=== PATIENT | male | born 1960 | race Caucasian/White ===

== ENCOUNTER 2021-09-23 08:31 | Inpatient (IN) | payer OTHER ==
[2021-09-23] VITALS (12 sets, daily range): BP systolic 116–161; BP diastolic 71–101
[~2021-09-23] VITALS: Ht 172.7 cm; Wt 102.1 kg
--- NOTE | 2021-09-23 08:31 | NUR ---
Patient wheelchair assisted from main lobby to ER bed 9.
--- NOTE | 2021-09-23 08:34 | NUR ---
RT at bedside
--- NOTE | 2021-09-23 08:34 | NUR ---
Dr. Coelho is evaluating pt at bedside
--- NOTE | 2021-09-23 08:35 | NUR ---
61 y/o M W/C assisted to bed 09 c/o fatigue x 2 weeks. Patient A&Ox4, ambulatory, states SOB and fatigue for the past 2 weeks worsening past 3 days. States fatigue worsens with exertion at work. Denies chest pain, abdominal pain, headache, fever, chills, N/V/D, urinary symptoms, sick household membres. Pt placed onto cadriac monitor showing SpO2 77% on room air; tachypneic @ 26. Bed locked in lowest position, side rails x 1. PMH/Sx/Meds: Denies NKDA
--- NOTE | 2021-09-23 08:35 | NUR ---
RT placed pt on 15L via NRB. SpO2 96% on NRB; states relief.
--- NOTE | 2021-09-23 08:46 | NUR ---
RAD at bedside
--- NOTE | 2021-09-23 08:49 | NUR ---
Moises valentine, influenza swabs handed to CPT at ER bedside
--- NOTE | 2021-09-23 08:49 | NUR ---
Lab at bedside. Blood sample handed to CPT
--- NOTE | 2021-09-23 08:49 | NUR ---
EMT at bedside for EKG
[2021-09-23 09:04] LABS: BASOPHILS # (AUTO) 0.1 K/uL (0.00-0.22); BASOPHILS % (AUTO) 0.8 % (0.0-2.0); EOSINOPHILS # (AUTO) 0.1 K/uL (0-0.4); EOSINOPHILS % (AUTO) 1.4 % (0.0-4.0); HEMATOCRIT 45.7 % (36-52); HEMOGLOBIN 15.2 g/dL (12.0-18.0); LYMPHOCYTES # (AUTO) 2.1 K/uL (2.0-11.5); LYMPHOCYTES % (AUTO) 22.2 % (20.5-51.1); MEAN CORPUSCULAR HEMOGLOBIN 33 pg (27-31); MEAN CORPUSCULAR HGB CONC 33 g/dL (33-37); MEAN CORPUSCULAR VOLUME 98.4 fL (80-94); MONOCYTES # (AUTO) 0.9 K/uL (0.8-1.0); MONOCYTES % (AUTO) 8.9 % (1.7-9.3); NEUTROPHILS # (AUTO) 6.4 K/uL (1.8-7.7); NEUTROPHILS % (AUTO) 66.7 % (42.2-75.2); PLATELET COUNT (AUTO) 154 K/uL (140-450); RED BLOOD CELL COUNT(AUTO) 4.64 MIL/uL (4.20-6.10); RED CELL DISTRIBUTION WIDTH 15.2 % (11.6-13.7); WHITE BLOOD COUNT (AUTO) 9.7 K/uL (4.8-10.8)
--- NOTE | 2021-09-23 09:05 | NUR ---
Note undone in EDM - 09/23/21 at 0908 by [facility] 61 y/o M W/C assisted to bed 09 c/o fatigue x 2 weeks. Patient A&Ox4, ambulatory, states SOB and fatigue for the past 2 weeks worsening past 3 days. States fatigue worsens with exertion at work. Denies chest pain, abdominal pain, headache, fever, chills, N/V/D, urinary symptoms, sick household membres. Pt placed onto cadriac monitor showing SpO2 77% on room air; tachypneic @ 26. Bed locked in lowest position, side rails x 1. PMH/Sx/Meds: Denies NKDA
[2021-09-23 09:35] LABS: ALBUMIN 3.8 g/dL (3.4-5.0); ANION GAP 17.8 (8-16); CARBON DIOXIDE 23.6 mmol/L (21-32); CREATININE 1.5 mg/dL (0.6-1.3); POTASSIUM 4.4 mmol/L (3.5-5.1); TOTAL BILIRUBIN 1.3 mg/dL (0.0-1.0)
--- NOTE | 2021-09-23 09:46 | NUR ---
Pt to CT by rhonda; placed on 15L via NRB on portable O2 tank.
[2021-09-23 09:48] LABS: APPEARANCE,URINE CLEAR (CLEAR); BILIRUBIN,URINE NEGATIVE (NEGATIVE); BLOOD, URINE 3+ (NEGATIVE); COLOR,URINE YELLOW (YELLOW); LEUKOCYTE ESTERASE ,URINE TRACE (NEGATIVE); NITRITE, URINE NEGATIVE (NEGATIVE); UGLUCOSE NEGATIVE (NEGATIVE)
[2021-09-23 09:50] LABS: PROTHROMBIN TIME 9.9 secs (10.8-13.4)
[2021-09-23] MEDS ORDERED: NACL 0.9% 250 ML IV ONE (09:50)
[2021-09-23] MEDS ORDERED: ASPIRIN 325 MG TAB PO ONE (09:50)
[2021-09-23] MEDS ORDERED: DOXYCYCLINE 100 MG CAP PO SCH (09:50)
[2021-09-23] MEDS ORDERED: HEPARIN PER PHARMACY MC STA (09:51)
[2021-09-23] MEDS ORDERED: HEPARIN PER PHARMACY MC ONE (09:55)
[2021-09-23] MEDS ORDERED: hePARIN / DEXT 5% PREMIX 250 ML IV ONE (09:55)
[2021-09-23] MEDS ORDERED: cefTRIAXone 1,000 MG VIAL ONE (09:58)
--- NOTE | 2021-09-23 10:02 | NUR ---
Pt returned from CT and back onto furniture reproducer.
[2021-09-23 10:07] LABS: WBC,URINE 0-5 /HPF (0-5); YEAST,URINE Few /HPF (None Seen)
[2021-09-23] MEDS ORDERED: HEPARIN PER PHARMACY MC PRN ×2 (10:15→10:35)
--- NOTE | 2021-09-23 10:21 | NUR ---
Dr. Coelho is evaluating pt at bedside. Assembler Musical Equipment ID: [id number]
[2021-09-23] MEDS ORDERED: hePARIN / DEXT 5% PREMIX 250 ML IV SCH (10:35)
--- NOTE | 2021-09-23 10:39 | NUR ---
Per pharmacy, Heparin BOLUS 5700 Units and intiate drip at 1500 Units (15mL). Reorder PT/INR at 6 hrs
--- NOTE | 2021-09-23 10:45 | NUR ---
Patient will be admitted to care of Dr. Yee. Admited to Telemetry. Will go to room 106A. Belongings list completed. Report to THAD Mustafa.
--- NOTE | 2021-09-23 10:53 | NUR ---
RECEIVED PT FROM ED NURSE, RECEIVED REPORT FROM NURSE. PT IS A&OX4,AMBULATED FROM [facility], TO HIS BED. PT ON NON-REBREATHER MASK, WITH 15L O2, O2SAT AT 94%. IV SITE ON BILATERAL AC, WITH 20G. PER ED NURSE, PT SHOULD RECEIVE 1500 UNITS OF HEPARIN DRIP, AND 5700UNITS OF HEPARIN BOLUS. CALL [facility] WITHIN REACH, ALL SAFETY MEAUSURES DONE. WILL CONTINUE TO MONITOR.
--- NOTE | 2021-09-23 10:55 | NUR ---
Bedside report given to THAD Mustafa. Endorsed Heparin orders per pharmacy to THAD Mustafa.
--- NOTE | 2021-09-23 11:08 | NUR ---
RICHIE FROM [facility] CALLED, PT TROPONIN AT 915, LACTIC ACID AT 4.5. REPORTED TO . REPLIED AND ORDERED TO GIVE 500ML NS BOLUS. GAVE 500ML NS BOLUS.
[2021-09-23] MEDS: hePARIN / DEXT 5% PREMIX 250 ML IV SCH (11:16)
--- NOTE | 2021-09-23 11:25 | NUR ---
STARTED HEPARIN DRIP AT 15ML/HR, AND GAVE BOLUS OF HEPARIN TO PT. PER PROTOCOL, PTT WILL BE TAKEN AFTER 6HRS.
[2021-09-23] MEDS ORDERED: NACL 0.9% 500 ML IV SCH (12:15)
--- NOTE | 2021-09-23 15:05 | NUR ---
PT O2SAT DROPPED TO 73% WHEN HE STOOD UP AND USED THE URINAL ON BEDSIDE. PLACED V/S MONITOR AND MONITORED PT V/S.
--- NOTE | 2021-09-23 15:09 | NUR ---
DR EMNDEZ CHANGED PT NON-REBREATHER MASK TO NC, WITH O2 FLOW RATE OF OF 6L. PT O2SAT AT 92%. AFTER SOME TIME, PT O2SAT DROPPED. RT PUT BACK THE NON-REBREATHER MASK AT 100% OXYGEN. PT O2SAT AT 91%.
--- NOTE | 2021-09-23 16:02 | NUR ---
PT WAS TRANSFERRED TO ICU. PT O2SAT IS GOING DOWN. TRANSPORTED PT TO ICU [facility], AND GAVE REPORT TO ICU NURSE. DISCUSSED PLAN OF CARE.
--- NOTE | 2021-09-23 16:15 | NUR ---
RECEIVED PT. FROM TELE RM 106A IN BED .ADM, TO ICUN BED 3. PT IS AWAKE ALERT ORIENTED X4 PT IS SLIGHTLY AGITATED TALK LOUND SKIN DRY AND INTACT IV#20 ON RT AND LEFT AC. HEPARIN DRIP ON RT AN INFUSING 1877 UNIT/HR . HE DENIED PAIN.
[2021-09-23] MEDS ORDERED: ACETAMINOPHEN 325 MG TAB PO PRN (16:25)
[2021-09-23] MEDS ORDERED: ONDANSETRON 4 MG/2 ML VIAL IVP PRN (16:25)
[2021-09-23] MEDS ORDERED: HYDROcodone/APAP 5/325 MG 1 TAB TAB PO PRN (16:25)
--- NOTE | 2021-09-23 17:15 | NUR ---
VISIT AT BED SIDE .
--- NOTE | 2021-09-23 17:49 | NUR ---
PT RESTING QUIET ON HIFLOW 40 L/1005 temp 37degree c SAT IS AT945.
--- NOTE | 2021-09-23 19:15 | NUR ---
RECEIVED PATIENT ON BED, AWAKE, ALERT AND ORIENTED; MOVES LIMBS FREELY. VENTILATING ON 100% 02 PER HI FLOW 02. COMMENCING ON IV HEPARIN DRIP AT 1500 UNITS/HR VIA G 20 IV CANNULA ON RIGHT AC; PATENT AND INTACT. ALL PERIPHERAL PULSES+ NO PEDAL EDEMA SEEN. ABDOMEN IS SOFT AND OBESE; ACTIVE BOWEL SOUNDS.
--- NOTE | 2021-09-23 21:30 | NUR ---
SETTLED TO SLEEP.;MONITORED CLOSELY.
[2021-09-23 23:17] LABS: PROTHROMBIN TIME 10.3 secs (10.8-13.4)
--- NOTE | 2021-09-23 23:34 | NUR ---
PTT RESULT WITHIN THERAPEUTIC RANGE; HEPARIN DRIP MAINTAINED [id number] UNITS/HR
[2021-09-24] VITALS (22 sets, daily range): BP systolic 111–158; BP diastolic 61–98
--- NOTE | 2021-09-24 04:30 | NUR ---
MORNING BED BATH DONE WITH MINIMUM ASSISTANCE.
[2021-09-24] MEDS: hePARIN / DEXT 5% PREMIX 250 ML IV SCH ×2 (05:15→20:40)
[2021-09-24 05:52] LABS: BASOPHILS # (AUTO) 0.1 K/uL (0.00-0.22); BASOPHILS % (AUTO) 1.2 % (0.0-2.0); EOSINOPHILS # (AUTO) 0.4 K/uL (0-0.4); EOSINOPHILS % (AUTO) 5.1 % (0.0-4.0); HEMATOCRIT 42.2 % (36-52); HEMOGLOBIN 14.2 g/dL (12.0-18.0); LYMPHOCYTES # (AUTO) 2.1 K/uL (2.0-11.5); LYMPHOCYTES % (AUTO) 27.5 % (20.5-51.1); MEAN CORPUSCULAR HEMOGLOBIN 33 pg (27-31); MEAN CORPUSCULAR HGB CONC 34 g/dL (33-37); MEAN CORPUSCULAR VOLUME 97.7 fL (80-94); MONOCYTES # (AUTO) 0.7 K/uL (0.8-1.0); MONOCYTES % (AUTO) 9.9 % (1.7-9.3); NEUTROPHILS # (AUTO) 4.2 K/uL (1.8-7.7); NEUTROPHILS % (AUTO) 56.3 % (42.2-75.2); PLATELET COUNT (AUTO) 133 K/uL (140-450); RED BLOOD CELL COUNT(AUTO) 4.31 MIL/uL (4.20-6.10); RED CELL DISTRIBUTION WIDTH 15.3 % (11.6-13.7); WHITE BLOOD COUNT (AUTO) 7.5 K/uL (4.8-10.8)
[2021-09-24 06:00] LABS: PROTHROMBIN TIME 10.3 secs (10.8-13.4)
[2021-09-24 06:20] LABS: ALBUMIN 3.1 g/dL (3.4-5.0); CARBON DIOXIDE 21.8 mmol/L (21-32); CREATININE 1.2 mg/dL (0.6-1.3); MAGNESIUM 1.8 mg/dL (1.8-2.4); PHOSPHORUS 3.5 mg/dL (2.5-4.9); POTASSIUM 3.8 mmol/L (3.5-5.1); TOTAL BILIRUBIN 0.9 mg/dL (0.0-1.0)
--- NOTE | 2021-09-24 07:20 | NUR ---
RECEIVED REPORT FROM DANIEL ONEIL. SLEEPING ON HI FLOW 40L/80%/37 DEGREE. 02 SAT 96% SKIN DRY AND WARM TO TOUCH.IV HAS GATE #20 ON RT AND LT AC , HEPARIN DRIP ON RT AC AT 1500 UNIT/HR..
--- NOTE | 2021-09-24 11:50 | NUR ---
SEEN BY DR. VANESSA WILKES
--- NOTE | 2021-09-24 12:08 | NUR ---
DC PLANNIN YRS OLD MALE PATIENT WAS ADMITTED FROM HOME WITH A DX OF PULMONARY EMBOLISM. PATIENT HAS A HX OF COPD. CXR SHOWED NO ACUTE CARDIOPULMONARY DISEASE. CT CHEST BILATERAL PULMONARY EMBOLISM WITH RELATIVELY HIGH BURDEN, RAPID COVID TEST NEGATIVE. ON HIGH FLOW O2 FIO2 100%. ADMINISTERED HEPARIN DRIP. CONSULTED WITH PULMO AND CARDIO. DC PLAN TO GO HOME WHEN STABLE CM TO FOLLOW Addendum: 09/26/21 at 0904 by Goldie Slaughter RN DC PLANNING: PATIENT HAS AN ORDER TO TRANSFER TO HIGHER LEVEL OF CARE FOR CARDIAC CATHETERIZATION. FAXED TO [facility] [phone]. CM TO FOLLOW Addendum: 09/26/21 at 1148 by Goldie Slaughter RN DC PLANNING: CALLED [facility] [phone] SPOKE WITH MARION RICHARDS STATED [facility] IS NOT DELEGATED AND TO CONTACT [facility]. CALLED [facility] [phone] SPOKE WITH KIMBERLY PUT ME ON HOLD FOR MORE THAT 40 MIN AND TRANSFERRED ME TO PT'S PCP. CALLED SEVERAL TIMES SEEMS UNABLE TO LOOK FOR THE CONTRACTED FACILITY. PARVIN FROM [facility] COVERED PLACE ME ON HOLD. CM TO FOLLOW Addendum: 09/26/21 at 1346 by Goldie Slaughter RN DC PLANNING: PER PARVIN AT [facility] STATED SINCE THE MEMBER IS FFS DRG NO NEED FOR PRIOR AUTH. CALLED [facility] SPOKE WITH KAREN GANDARA STATED WILL REVIEW THE CASE AND CALL BACK. CM TO FOLLOW Addendum: 09/26/21 at 1514 by Goldie Slaughter RN DC PLANNING CALLED [facility] SPOKE WITH KAREN WALDROP AWAITING FOR THE DIRECTOR OF ORTHOPEDICS TO ACCEPT PATIENT. FAXED TO [facility] AND [facility]. CM TO FOLLOW. Addendum: 09/26/21 at 1600 by Goldie Slaughter RN DC PLANNING: RECEIVED A CALL FROM [facility] NICHOL BELL WITH KAREN WALDROP THEY ACCEPT PATIENT AND ACCEPTING DR WILL BE DR AARON Calhoun AND ATTENDING DR MOSER. AWAITING FOR ROOM NUMBER. CM TO FOLLOW Addendum: 09/26/21 at 1657 by Goldie Slaughter RN DC PLANNING: RECEIVED A CALL FROM [facility] SUPERVISOR REQUESTING THE COVID PCR RESULT, ITS PENDING NOTIFIED NURSE RENÉE AND ELGIN BARTH TO FAX THE PCR RESULT TO [phone] ARRANGED TRANSPORT WITH [facility] PLACE IT WILL CALL. [facility] # [phone]. CM TO FOLLOW
--- NOTE | 2021-09-24 13:00 | NUR ---
SEEN BY DR. CASTRO NO ORDER RECEIVED.
--- NOTE | 2021-09-24 14:48 | NUR ---
ECHOCARDIOGRAM DONE. P[T IS AWAKE AND ALERT.DENIED PAIN.
--- NOTE | 2021-09-24 15:00 | NUR ---
VISIT BY FAMILY [SON] AT BED SIDE.
--- NOTE | 2021-09-24 16:30 | NUR ---
VISIT BY AT BEDSIDE, PT AWAKE AND ALERT DENIED PAIN.
--- NOTE | 2021-09-24 18:34 | NUR ---
DINNER TOOK 75%.
--- NOTE | 2021-09-24 19:19 | NUR ---
REPORT GIVE TO DANIEL THAD .
--- NOTE | 2021-09-24 19:20 | NUR ---
RECEIVED PATIENT ON BED, AWAKE, ALERT AND ORIENTED; VENTILATING THRU 75% HIGH FLOW 02 BY NASAL CANNULA S02 95%. CARDIACCOPE SHOWS ON SINUS RHYTHM HR 73/MIN NO ARRHYTHMIAS SEEN. IV DRIP IN PROGRESS HEPARIN AT 1500 UNITS/HR VIA G 20 IV CANNULA ON RIGHT AC, PATENT AND INTACT. ABDOMEN IS SOFT, ACTIVE BOWEL SOUNDS.
[2021-09-25] VITALS (19 sets, daily range): BP systolic 113–155; BP diastolic 59–108
--- NOTE | 2021-09-25 | NUR ---
ASLEEP, V/S STABLE AND WITHIN NORMAL RANGE.
--- NOTE | 2021-09-25 04:00 | NUR ---
REFUSE MORNING BED BATH; PREFERS TO SLEEP.
[2021-09-25 04:24] LABS: BASOPHILS % (AUTO) 0.4 % (0.0-2.0); EOSINOPHILS # (AUTO) 0.4 K/uL (0-0.4); EOSINOPHILS % (AUTO) 5.6 % (0.0-4.0); HEMOGLOBIN 13.7 g/dL (12.0-18.0); LYMPHOCYTES # (AUTO) 2.5 K/uL (2.0-11.5); LYMPHOCYTES % (AUTO) 36.4 % (20.5-51.1); MEAN CORPUSCULAR HEMOGLOBIN 33 pg (27-31); MEAN CORPUSCULAR HGB CONC 34 g/dL (33-37); MEAN CORPUSCULAR VOLUME 97.9 fL (80-94); MONOCYTES # (AUTO) 0.6 K/uL (0.8-1.0); MONOCYTES % (AUTO) 8.6 % (1.7-9.3); NEUTROPHILS # (AUTO) 3.4 K/uL (1.8-7.7); PLATELET COUNT (AUTO) 118 K/uL (140-450); RED BLOOD CELL COUNT(AUTO) 4.18 MIL/uL (4.20-6.10); RED CELL DISTRIBUTION WIDTH 15.2 % (11.6-13.7); WHITE BLOOD COUNT (AUTO) 6.9 K/uL (4.8-10.8)
[2021-09-25 04:29] LABS: ANION GAP 11.8 (8-16); CARBON DIOXIDE 24.2 mmol/L (21-32); CREATININE 1.3 mg/dL (0.6-1.3)
--- NOTE | 2021-09-25 05:00 | NUR ---
PTT RESULT WITHIN THERAPEUTIC RANGE SO HEPARIN DRIP MAINTAINED TO 1500 UNITS/HR PER PROTOCOL.
--- NOTE | 2021-09-25 07:05 | NUR ---
HAD BM TO A LARGE AMOUNT OF SOFT BROWN STOOL TO BEDSIDE COMMODE.
--- NOTE | 2021-09-25 07:30 | NUR ---
RECEIVED REPORT FROM VISUAL AND STOCK ASSOCIATE. PT AWAKE IN BED, HOB ELEVATED, AOX4, VINCENTIAN SPEAKING. NO RESPIRATORY DISTRESS ON HIFLOW 30L FIO2 75%, WITH SOB UPON EXERTION. NO C/O PAIN. WITH IV ON RAC 20G AND LAC 20G RUNNING HEPARIN DRIP 1500u/HR. NEXT PTT 5-24 @ 0400. ECHO PENDING. CALL LIGHT WITHIN REACH. SAFETY PRECAUTIONS IN PLACE
--- NOTE | 2021-09-25 07:35 | NUR ---
RECEIVED ON A VAPOTHERM HIGH FLOW NASAL CANNULA PLUGGED INTO RED OUTLET TOLERATING WELL WITHOUT ADVERSE REACTIONS NOTED NO APPARENT RESPIRATORY DISTRESS NOTED LOC AWAKE AND ALERT GOOD CHEST RISE SATURATION 98% ON FIO2 OF 75% TITRATED FIO2 TO 65% MAN/RN NOTIFIED
--- NOTE | 2021-09-25 08:30 | NUR ---
PT RESTING IN BED, NO COMPLAINTS AT THIS TIME
--- NOTE | 2021-09-25 09:03 | NUR ---
PATIENT HAS BEEN SCREENED AND CATEGORIZED MODERATE NUTRITION RISK. PATIENT WILL BE SEEN WITHIN 3-5 DAYS OF ADMISSION. / TO [address]
--- NOTE | 2021-09-25 10:10 | NUR ---
ECHO PROCEDURE COMPLETED 09/24/2021; HELD FOR DR. CASTRO TO READ; DR. LAMONT CLARK NOTIFIED
[2021-09-25] MEDS: ALBUTEROL SULFATE/IPRATROPIU 3 ML SOL IH PRN ×2 (10:47→19:40)
--- NOTE | 2021-09-25 10:48 | NUR ---
LOC AWAKE AND ALERT PATIENT PRESENTING WITH INCREASED SOB AT 24 BPM BREATH SOUNDS DIFFUSED RALES RIGHT SIDE; DECREASED LEFT SIDE HHN PRN THERAPY GIVEN AT THOS TIME ENCOURAGED PATIENT FOR INTERMITTENT DEEP BREATHING AND COUGH DURING HHN THERAPY SATURATION 97% ON FIO2 OF 65% POST HHN THERAPY TITRATED FIO2 TO 55% MAN/GRAB OPERATOR NOTIFIED
--- NOTE | 2021-09-25 11:20 | NUR ---
PT ASLEEP IN BED, NO APPARENT DISTRESS
--- NOTE | 2021-09-25 13:20 | NUR ---
SEEN AND EXAMINED BY DR CASTRO, PLAN OF CARE DISCUSSED. FAMILY AT BEDSIDE
[2021-09-25] MEDS: hePARIN / DEXT 5% PREMIX 250 ML IV SCH (13:45)
--- NOTE | 2021-09-25 16:10 | NUR ---
RESTING COMFORTABLY NO EVIDENCE OF PULMONARY DISTRESS NOTED GOPOD CHEST RISE AND AERATION THROUGHOUT BILATERAL LUNG [employer] AIRWAY PATENT SATURATION 96% ON FIO2 OF 55% TITRATED FIO2 TO 45% MAN/MANAGER SUBWAY NOTIFIED
--- NOTE | 2021-09-25 17:15 | NUR ---
NO DISTRESS NOTED EQUAL CHEST RISE SATURATION 96% ON FIO2 OF 45% TITRATED FIO2 TO 40% HOSSEIN/CISTERN ROOM WORKING SUPERVISOR NOTIFIED
--- NOTE | 2021-09-25 19:30 | NUR ---
RECEIVED PT. WIDE AWAKE, SITTING IN BED, AOX4, ABLE TO EXPRESS NEEDS AND BRITISH SPEAKING ONLY. PT. ON HIGH FLOW 28l, FIO2 40%, LUNG SOUNDS CLEAR. IV TO LEFT AC 20G AND RIGHT AC 20G WITH HEPARIN DRIP 1500 UNIT/HR. ABDOMEN SOFT, NON TENDER WITH BOWEL SOUNDS. SR ON MONITOR. SKIN DRY AND INTACT. PROVIDE SAFE AND QUIET ENVIRONMENT. NO C/O PAIN AT THIS TIME.
[2021-09-26] VITALS (14 sets, daily range): BP systolic 113–154; BP diastolic 60–103
--- NOTE | 2021-09-26 01:54 | NUR ---
PT. SLEEPING SUPINE AT THIS TIME. PT. ABLE TO MOVE HIMSELF INDEPENDENTLY IN BED. CONT. ON HIGH FLOW AND INCREASED FROM 40% TO 45% PER R.T. CONT. ON HEPARIN DRIP 1500 UNIT/HR. NO S/S OF PAIN AT THIS TIME.
--- NOTE | 2021-09-26 04:00 | NUR ---
LAB AT THE BEDSIDE TO DRAW PARTIAL THROMBOPLASTIN.
--- NOTE | 2021-09-26 04:48 | NUR ---
PT. AWAKE, ALERT AND ORIENTED. I OFFERED IF HE WANTS TO DO PERSONAL HYGIENE, PERSONAL CARE WITH ASSISTANCE AND HE SAID NO.
[2021-09-26] MEDS: hePARIN / DEXT 5% PREMIX 250 ML IV SCH (05:32)
[2021-09-26] MEDS: ALBUTEROL SULFATE/IPRATROPIU 3 ML SOL IH PRN ×2 (07:28→14:41)
--- NOTE | 2021-09-26 07:28 | NUR ---
RECEIVED ON A VAPOTHERM HIGH FLOW NASAL CANNULA PLUGGED INOT RED OUTLET TOLERATING WELL WITHOUT COMPLICATIONS NOTED SATURATION 97%ON FIO2 OF 45% POST HHN THERAPY TITRATED FIO2 TO 40% LEAD JAVASCRIPT DEVELOPER TO MONITOR AND TITRATE FIO2 TOLERATED FERNANDO/SAFETY GLASS INSTALLER NOTIFIED
--- NOTE | 2021-09-26 07:30 | NUR ---
RECEIVED BEDSIDE REPORT FROM PRECISION LENS TECHNICIAN NURSE LENI, PT SLEEPING, EASILY AROUSED. PT ON HIFLOW O2 28LPM FIO2 45%, SATURATING @ 100%, NO SOB NOTED. IV TO LEFT AC 20G AND RIGHT AC 20G PATENT INTACT, RUNNING HEPARIN @ 1500UNITS/HR. INITIAL ASSESSMENT DONE, ALL SAFETY PRECAUTION MET, CALL LIGHT WITHIN REACH. WILL CONTINUE TO MONITOR.
[2021-09-26 09:08] LABS: BASOPHILS # (AUTO) 0.1 K/uL (0.00-0.22); BASOPHILS % (AUTO) 1.3 % (0.0-2.0); EOSINOPHILS # (AUTO) 0.3 K/uL (0-0.4); EOSINOPHILS % (AUTO) 5.7 % (0.0-4.0); HEMATOCRIT 41.5 % (36-52); HEMOGLOBIN 13.9 g/dL (12.0-18.0); LYMPHOCYTES # (AUTO) 1.9 K/uL (2.0-11.5); LYMPHOCYTES % (AUTO) 30.3 % (20.5-51.1); MEAN CORPUSCULAR HEMOGLOBIN 33 pg (27-31); MEAN CORPUSCULAR HGB CONC 33 g/dL (33-37); MEAN CORPUSCULAR VOLUME 98.5 fL (80-94); MONOCYTES # (AUTO) 0.5 K/uL (0.8-1.0); MONOCYTES % (AUTO) 8.9 % (1.7-9.3); NEUTROPHILS # (AUTO) 3.3 K/uL (1.8-7.7); NEUTROPHILS % (AUTO) 53.8 % (42.2-75.2); PLATELET COUNT (AUTO) 126 K/uL (140-450); RED BLOOD CELL COUNT(AUTO) 4.21 MIL/uL (4.20-6.10); RED CELL DISTRIBUTION WIDTH 15.6 % (11.6-13.7); WHITE BLOOD COUNT (AUTO) 6.1 K/uL (4.8-10.8)
[2021-09-26 09:14] LABS: ANION GAP 12.9 (8-16); CREATININE 1.3 mg/dL (0.6-1.3); POTASSIUM 3.9 mmol/L (3.5-5.1); TOTAL BILIRUBIN 0.7 mg/dL (0.0-1.0)
--- NOTE | 2021-09-26 09:25 | NUR ---
SPOKE TO PT WITH DAUGHTER AT BEDSIDE TRANSLATING REGARDING TRANSFER ORDER, PT STATED UNDERSTANDING, TRANSFER CONSENT SIGNED. WILL CONTINUE TO MONITOR.
--- NOTE | 2021-09-26 09:57 | NUR ---
SATURATION 96% ON FIO2 OF 40% TITRATED FIO2 TO 35% FERNANDO/ACID TANK LINER NOTIFIED
--- NOTE | 2021-09-26 12:03 | NUR ---
STABLE NO EVIDENCE OF RESPIRATORY DISTRESS NOTED GOOD CHEST RISE SATURATION 98% ON FIO2 OF 35% VIA VAPOTHERM TITRATED FIO2 TO 30% FERNANDO/HOUSEKEEPER CHILD CARE NOTIFIED
--- NOTE | 2021-09-26 13:30 | NUR ---
POST HHN THERAPY DISCONTINUED VAPOTHERM HIGH FLOW NASAL CANNULA PLACED ON HUMIDIFIED SUPPLEMENTAL OXYGEN AT 3 LPM VIA [place] FIELD CROP FARMER TO MONITOR FERNANDO/CARDIOLOGIST NOTIFIED
--- NOTE | 2021-09-26 15:05 | NUR ---
GIVEN BEDSIDE REPORT TO NURSE HOSSEIN ONEIL FOR CONTINUOUS OF CARE.
--- NOTE | 2021-09-26 15:06 | NUR ---
RECEIVED BEDSIDE REPORT FROM FERNANDO ONEIL FOR CONTINUITY OF CARE. PT AAOX4, SITTING UP IN THE BED. ON 3L NC, SR ON MONITOR. REGULAR DIET. BOWEL SOUNDS ACTIVE, LAST BM TODAY. CONTINENT OF BOWEL AND BLADDER. URINAL AND COMMODE AT BEDSIDE. MILD WEAKNESS. SKIN INTACT. LAC 20G INTACT. RAC 20G INTACT, INFUSING HEPARIN AT 1500 UNITS/HR. ON STANDARD PRECAUTIONS. AT BEDSIDE. SAFETY PRECAUTIONS MET. ALL NEEDS MET AT THIS TIME. INITIAL ASSESSMENT COMPLETE, WILL CONTINUE TO CLOSELY MONITOR.
--- NOTE | 2021-09-26 15:50 | NUR ---
SEEN AND EXAMINED BY Lj ELLER
--- NOTE | 2021-09-26 17:00 | NUR ---
UPDATE FOR TRANSFER. PER FRITZ SCHULTZ, [facility] REQUESTS COVID PCR RESULTS. WAITING FOR PCR RESULTS FROM [facility]. THEN I WILL FAX RESULTS TO [facility].
--- NOTE | 2021-09-26 19:15 | NUR ---
ENDORSED BEDSIDE REPORT TO LENI TRINIDAD RN FOR CONTINUITY OF CARE.
--- NOTE | 2021-09-26 19:15 | NUR ---
RECEIVED PT ON 3LNC, SATURATION IS 96%. CLEAR/ DIMINISHED BILATERALLY. RESTING COMFORTABLY AND IN NO DISTRESS.
--- NOTE | 2021-09-26 19:59 | NUR ---
PHONE CALL TO PRASHANTH PT FOR TRANSFER TO [facility] FOR HIGHER LEVEL OF CARE ROOM 237U
--- NOTE | 2021-09-26 20:03 | NUR ---
PHONE CALL TO PTS GURWINDER, NO ANSWER, LEFT MESSAGE TO CALL COOK PRESSURE
--- NOTE | 2021-09-26 20:04 | NUR ---
RECEIVED PT. FROM DAY SHIFT CED. PT. ALERT, WIDE AWAKE AND ORIENTED. EATING BREAKFAST WHILE WE'RE DOING THE BEDSIDE REPORT WITH GOOD APPETITE. PT. ON NS 2L. IV TO RIGHT AC RUNNING HEPARIN DRIP OF 1500 UNIT/HR. PER REPORT, PT. WILL BE TRANSFERRED TO [facility] WHEN BED AVAILABLE. PT. NO S/S OF PAIN. PROVIDED SAFE AND QUIET ENVIRONMENT. WILL CONT. TO MONITOR.
--- NOTE | 2021-09-26 20:07 | NUR ---
COMMUNICATIONS ATTENDANT CALLED THAT BED IS READY IN [facility] ROOM 237A. I CALLED REPORT TO THAD PUGA ([facility]). THAD MCGOVERNCITY CARRIER NURSE CALLED [facility]. PREPARED PT. FOR TRANSFER. FROILAN CALLED THE AND LEFT A MESSAGE.
--- NOTE | 2021-09-26 20:22 | NUR ---
[facility] IS NOW HERE, FOR TRANSFER TO [facility]. REPORT GIVEN TO [facility]. DISCONNECT HEPARIN DRIP AND GIVEN HEPARIN 3000 UNITS IVP BOLUS TO RIGHT AC.
--- NOTE | 2021-09-26 20:39 | NUR ---
PHONE CALL FROM PTS GURWINDER MAKI, MADE AWARE PT ALREADY EN ROUTE TO [facility], ROOM NUMBER GIVEN TO GURWINDER.
== END 2021-09-26 20:30 | disposition short-term general hospital (02) | DRG 175 ==
LOC: MED 08:31 → MTU 10:34 → MIC 16:05
PROVIDERS: ADMIT Student in an Organized Health Care Education/Training Program; ATTEND Student in an Organized Health Care Education/Training Program
PROC: 5A0945A Assistance with Respiratory Ventilation, 24-96 Consecutive Hours, High Flow/Velocity Cannula (ICD-10-PCS; principal; 2021-09-23)
DX: I26.99 Other pulmonary embolism without acute cor pulmonale (principal); J96.01 Acute respiratory failure with hypoxia; I21.A1 Myocardial infarction type 2; N17.9 Acute kidney failure, unspecified; E87.2 Acidosis; K76.0 Fatty (change of) liver, not elsewhere classified; E80.6 Other disorders of bilirubin metabolism; Z20.822 Contact with and (suspected) exposure to COVID-19
CPT/HCPCS: 36415; 36600; 71045; 71275; 80048; 80053; 81001; 82550; 82553; 82803; 83605; 83735; 83880; 84100; 84484; 85025; 85379; 85610; 85730; 87040; 87081; 87086; 87635-QW; 93005; 93970; 94640; 96365; 99285; J0696; J1644; Q0092; Q9967